=== PATIENT | male | born 1945 | race Caucasian/White ===

== ENCOUNTER 2018-09-13 10:30 | Emergency (ER) | payer MEDICARE, MEDICAID ==
[~2018-09-13] VITALS: Ht 167.6 cm; Wt 68.2 kg
[2018-09-13] MEDS ORDERED: HTN MEDICATION PO (10:35)
[2018-09-13 15:09] VITALS: BP 137/72
== END 2018-09-13 15:44 | disposition home or self-care (01) ==
LOC: EMS 10:31
DX: S50.11XA Contusion of right forearm, initial encounter (principal); S00.83XA Contusion of other part of head, initial encounter; W01.198A Fall on same level from slipping, tripping and stumbling with subsequent striking against other object, initial encounter; Y93.89 Activity, other specified; Y92.89 Other specified places as the place of occurrence of the external cause; Y99.8 Other external cause status
CPT/HCPCS: 70450